=== PATIENT | female | born 1970 ===

== ENCOUNTER 2018-04-30 10:59 | Emergency (ER) | payer OTHER ==
[2018-04-30 10:59] VITALS: BMI 45.5
[2018-04-30 11:49] VITALS: BP 138/85; PULSE 97; RESP 16; TEMP 98.5; O2SAT 96
== END 2018-04-30 11:56 | disposition left against medical advice (07) ==
LOC: ED 10:59
DX: Z02.89 Encounter for other administrative examinations (principal); R73.9 Hyperglycemia, unspecified
CPT/HCPCS: 82948; LWBS0

== ENCOUNTER 2018-05-31 00:48 | Emergency (ER) | payer OTHER ==
[2018-05-31 01:02] VITALS: BMI 45.6
[2018-05-31 01:18] VITALS: TEMP 98.1
[2018-05-31 01:48] LABS: BASO # 0.02 K/mm3 (0.0-2.0); BASO % 0.2 % (0.0-3.0); EOS # 0.2 (0.0-0.7); EOS % 1.4 % (1.5-5.0); GRAN # 8.56 (1.4-6.5); GRAN % 67.4 % (50.0-68.0); HEMOGLOBIN 14.9 g/dL (12.0-16.0); LYMPH # 3.2 (1.2-3.4); MEAN CELL VOLUME 84.5 fl (80.0-105.0); MEAN CORPUSCULAR HEMOGLOBIN 28.5 pg (25.0-35.0); MEAN CORPUSCULAR HGB CONC 33.7 g/dl (31.0-37.0); MEAN PLATELET VOLUME 10.8 fl (7.0-11.0); MONO # 0.8 (0.1-0.6); RBC 5.23 10^6/uL (3.5-6.1); RED CELL DISTRIBUTION WIDTH 13.2 % (11.5-14.5); WHITE BLOOD COUNT 12.7 10^3/ul (4.5-11.0)
--- NOTE | 2018-05-31 01:48 | ED PDOC ---
Arrival/HPI - General Chief Complaint: Chest Pain Time Seen by Provider: 05/31/18 01:13 Historian: Patient - History of Present Illness Narrative History of Present Illness (Text): 05/31/18 01:48 47 year old female, whose past medical history includes diabetes, rheumatoid arthritis, hypertension, and pulmonary embolism, presents to the emergency department with right sided chest pain, for the past week. Patient denies any shortness of breath or radiation of the pain. Patient seeks evaluation because she thinks the pain feels similar to when she had a pulmonary embolism 7 months ago. Patient is not on blood thinners. Patient states the pain comes and goes lasting for about 15 minutes. No exacerbation or alleviation of her pain. Patient denies any pain currently. Patient also denies any fever, chills, headache, dizziness, edema, abdominal pain, nausea, vomiting, diarrhea, back pain, neck pain, urinary/bowel changes, or any other complaint. Time/Duration: 1 week Past Medical History - Provider Review Nursing Documentation Reviewed: Yes - Reproductive Menopause: Yes ([id number] lmp) - Cardiac Hx Cardiac Disorders: Yes Hx Hypertension: Yes - Pulmonary Hx Respiratory Disorders: Yes Hx Pulmonary Embolism: Yes - Neurological Hx Neurological Disorder: No - HEENT Hx HEENT Disorder: No - Renal Hx Renal Disorder: No - Endocrine/Metabolic Hx Endocrine Disorders: Yes Hx Diabetes Mellitus Type 2: Yes - Hematological/Oncological Hx Blood Disorders: No - Integumentary Hx Dermatological Disorder: No - Musculoskeletal/Rheumatological Hx Musculoskeletal Disorders: Yes Hx Rheumatoid Arthritis: Yes - Gastrointestinal Hx Gastrointestinal Disorders: No - Genitourinary/Gynecological Hx Genitourinary Disorders: No - Psychiatric Hx Psychophysiologic Disorder: Yes Hx Substance Use: Yes (heroin) - Surgical History Hx Appendectomy: Yes - Anesthesia Hx Anesthesia: Yes Hx Anesthesia Reactions: No Hx Malignant Hyperthermia: No Family/Social History - Physician Review Nursing Documentation Reviewed: Yes Family/Social History: No Known Family HX Smoking Status: Current Some Days Smoker Hx Alcohol Use: Yes Hx Substance Use: Yes (heroin) Substance used: "Heroine every other day'' Allergies/Home Meds Allergies/Adverse Reactions: Allergies Penicillins Allergy (Verified 05/31/18 01:02) RASH Home Medications: Home Meds Medication Instructions Recorded Confirmed Oxycodone HCl/Acetaminophen 1 tab PO TID 01/13/16 05/31/18 [Percocet 10-325 mg Tablet] metFORMIN [glucOPHAGE] 500 mg PO BID 06/17/17 05/31/18 Atenolol [Tenormin] 12.5 mg PO DAILY 05/31/18 05/31/18 Review of Systems - Physician Review All systems were reviewed & negative as marked: Yes - Review of Systems Constitutional: Normal. absent: Fevers, Night Sweats Eyes: Normal ENT: Normal Respiratory: Normal Cardiovascular: Chest Pain Gastrointestinal: Normal Genitourinary Female: Normal. absent: Urine Output Changes Musculoskeletal: Normal. absent: Back Pain, Neck Pain Skin: Normal Neurological: Normal. absent: Headache, Dizziness Endocrine: Normal Hemo/Lymphatic: Normal Psychiatric: Normal Physical Exam Vital Signs Reviewed: Yes Vital Signs Temp Pulse Pulse Resp BP Pulse Ox 05/31/18 03:41 83 18 118/67 99 05/31/18 03:00 81 20 110/63 97 05/31/18 01:35 91 H 05/31/18 01:14 98.1 F 05/31/18 01:07 99.3 F 93 H 18 147/77 99 Temperature: Afebrile Blood Pressure: Normal Pulse: Regular Respiratory Rate: Normal Appearance: Positive for: Well-Appearing, Non-Toxic, Comfortable Pain Distress: None Mental Status: Positive for: Alert and Oriented X 3 - Systems Exam Head: Present: Atraumatic, Normocephalic Pupils: Present: PERRL Extroacular Muscles: Present: EOMI Conjunctiva: Present: Normal Mouth: Present: Moist Mucous Membranes Neck: Present: Normal Range of Motion Respiratory/Chest: Present: Clear to Auscultation, Good Air Exchange. No: Respiratory Distress, Accessory Muscle Use Cardiovascular: Present: Regular Rate and Rhythm, Normal S1, S2. No: Murmurs Abdomen: No: Tenderness, Distention, Peritoneal Signs Back: Present: Normal Inspection Upper Extremity: Present: Normal Inspection. No: Cyanosis, Edema Lower Extremity: Present: Normal Inspection. No: Edema Neurological: Present: GCS=15, CN II-XII Intact, Speech Normal Skin: Present: Warm, Dry, Normal Color. No: Rashes Psychiatric: Present: Alert, Oriented x 3, Normal Insight, Normal Concentration Medical Decision Making ED Course and Treatment: 05/31/18 01:59 Impression: 47 year old female presents to the emergency department with right- sided chest pain Plan: -- CT Angio chest -- EKG -- Labs -- Reassess and disposition Prior Visits: Notes and results from previous visits were reviewed. Progress Notes: Patient currently denies chest pain, it is intermittent. Labs and CTA chest done , which was negative for PE. Patient with no complaints throughout emergency department course. On re-eval she was sleeping comfortably. Results discussed. Patient stable for discharge home. 05/31/18 03:39 CT Angiography Chest With Intravenous Contrast EXAM DATE/TIME: 05/31/2018 1:13 AM CLINICAL HISTORY: 47 years old, female; Pain; Chest pain; Type not specified; Additional info: Chest pain, HX of pe TECHNIQUE: Axial computed tomographic angiography images of the chest with intravenous contrast using CT angiography protocol. All CT scans at this facility use at least one of these dose optimization techniques: automated exposure control; mA and/or kV adjustment per patient size (includes targeted exams where dose is matched to clinical indication); or iterative reconstruction. MIP reconstructed images were created and reviewed. CONTRAST: 100 ml of visipaque 320 administered intravenously. COMPARISON: No relevant prior studies available. FINDINGS: Pulmonary arteries: No pulmonary embolism. Aorta: Normal. No aortic aneurysm. No aortic dissection. Lungs: Mosaic attenuation pattern which is nonspecific but could be reflective of small airways disease or vascular pathology such as pulmonary hypertension. Pleural space: Normal. No pneumothorax. No pleural effusion. Heart: Normal. No cardiomegaly. No pericardial effusion. Bones/joints: Unremarkable. No acute fracture. Soft tissues: Unremarkable. Lymph nodes: Unremarkable. No enlarged lymph nodes. Liver: Caity liver. IMPRESSION: No pulmonary embolism. - Lab Interpretations Lab Results: 05/31/18 01:19 05/31/18 01:55 Lab Results 05/31/18 01:55: PT 12.5, INR 1.09, APTT 38.9 H 05/31/18 01:55: Sodium 138, Potassium 4.6, Chloride 97 L, Carbon Dioxide 32, Anion Gap 13, BUN 11, Creatinine 0.6 L, Est GFR ( Amer) > 60, Est GFR ( Non-Af Amer) > 60, Random Glucose 205 H, Calcium 9.4, Troponin I < 0.01 05/31/18 01:19: WBC 12.7 H, RBC 5.23, Hgb 14.9, Hct 44.2, MCV 84.5, MCH 28.5, MCHC 33.7, RDW 13.2, Plt Count 233, MPV 10.8, Gran % 67.4, Lymph % (Auto) 25.0, Beaver % (Auto) 6.0, Eos % (Auto) 1.4 L, Baso % (Auto) 0.2, Gran # 8.56 H, Lymph # (Auto) 3.2, Beaver # (Auto) 0.8 H, Eos # (Auto) 0.2, Baso # (Auto) 0.02 - RAD Interpretation Radiology Orders: 05/31/18 01:13 ANGIO CHEST PE PROTOCOL [CT] Stat - Scribe Statement The provider has reviewed the documentation as recorded by the Scribe Giovanny Ford Provider Scribe Attestation: All medical record entries made by the Scribe were at my direction and personally dictated by me. I have reviewed the chart and agree that the record accurately reflects my personal performance of the history, physical exam, medical decision making, and the department course for this patient. I have also personally directed, reviewed, and agree with the discharge instructions and disposition. Disposition/Present on Arrival - Present on Arrival Any Indicators Present on Arrival: Yes History of DVT/PE: Yes History of Uncontrolled Diabetes: Yes Urinary Catheter: No History of Decub. Ulcer: No History Surgical Site Infection Following: None - Disposition Have Diagnosis and Disposition been Completed?: Yes Diagnosis: Chest pain Disposition: HOME/ ROUTINE Disposition Time: 03:55 Condition: GOOD Discharge Instructions (ExitCare): Chest Pain (ED) Additional Instructions: FABRICE SINGH, thank you for letting us take care of you today. Your provider was Edyta Tomlinson MD and you were treated for chest pain. The emergency medical care you received today was directed at your acute symptoms. If you were prescribed any medication, please fill it and take as directed. It may take several days for your symptoms to resolve. Return to the Emergency Department if your symptoms worsen, do not improve, or if you have any other problems. Please contact your doctor or call one of the physicians/clinics you have been referred to that are listed on the Patient Visit Information form that is included in your discharge packet. Bring any paperwork you were given at discharge with you along with any medications you are taking to your follow up visit. Our treatment cannot replace ongoing medical care by a primary care provider outside of the emergency department. Thank you for allowing the [facility] team to be part of your care today. If you had an X-Ray or CT scan: A Radiologist will review the ED reading if any change in treatment is needed we will contact you. If you had a blood, urine, or wound culture: It will take several days for the results, if any change in treatment is needed we will contact you. If you had an STI test: It will take 48 hours for the results. Please call after 1 week if you have not heard back. Referrals: Tracy Moore MD [Primary Care Provider] - Follow up with primary Forms: [employer] (Ukrainian)
[2018-05-31 02:00] LABS: TROPONIN I < 0.01 ng/mL
[2018-05-31 02:14] LABS: INR 1.09; PARTIAL THROMBOPLASTIN TIME 38.9 Seconds (25.1-36.5); PROTHROMBIN TIME 12.5 SECONDS (9.4-12.5)
[2018-05-31 02:20] LABS: BLOOD UREA NITROGEN 11 mg/dL (7-21); CALCIUM 9.4 mg/dL (8.4-10.5)
[2018-05-31 02:33] LABS: GFR NON-AFRICAN AMERICAN > 60
[2018-05-31] MEDS ORDERED: Iodixanol 320 MG/ML 100 ML BOTTLE IV ONE (02:43)
[2018-05-31 03:42] VITALS: BP 118/67; PULSE 83; RESP 18; O2SAT 99
--- NOTE | 2018-05-31 08:25 | CT ---
Date of service: 05/31/2018 PROCEDURE: CT Chest with contrast (Pulmonary Angiogram) HISTORY: chest pain, hx of PE COMPARISON: None available. TECHNIQUE: Axial computed tomography images were obtained of the chest in the pulmonary arterial phase of enhancement. Coronal and sagittal reformatted images were created and reviewed. Intravenous contrast dose: 100 cc of Visipaque Radiation dose: Total exam DLP = 763 mGy-cm. This CT exam was performed using one or more of the following dose reduction techniques: Automated exposure control, adjustment of the mA and/or kV according to patient size, and/or use of iterative reconstruction technique. FINDINGS: PULMONARY ARTERIES: Unremarkable. No pulmonary embolism. AORTA: No acute findings. No thoracic aortic aneurysm. LUNGS: Unremarkable. No nodule, mass or pulmonary consolidation. Minimal ground-glass densities are seen in both lungs. PLEURAL SPACES: Unremarkable. No effusion or pneumothorax. HEART: Unremarkable. No cardiomegaly. No significant pericardial effusion. LYMPH NODES: No lymphadenopathy. BONES, CHEST WALL: Unremarkable. No fracture or destructive lesion OTHER FINDINGS: The report concurs with the preliminary [facility] report IMPRESSION: Unremarkable CT pulmonary angiogram. No pulmonary embolus.
--- NOTE | 2018-05-31 21:36 | CARD ---
APPROVED REPORT Date of service: 05/31/2018 EKG Measurement Heart [id number] <Conclusion> Normal sinus rhythm Possible Left atrial enlargement Borderline ECG
== END 2018-05-31 03:55 | disposition home or self-care (01) ==
LOC: ED 00:48
DX: R07.9 Chest pain, unspecified (principal); E11.9 Type 2 diabetes mellitus without complications; I10 Essential (primary) hypertension; M06.9 Rheumatoid arthritis, unspecified; Z86.711 Personal history of pulmonary embolism
CPT/HCPCS: 71275; 80048; 84484; 85025; 85610; 85730; 93005; 99284; Q9967

== ENCOUNTER 2018-09-09 18:55 | Emergency (ER) | payer MEDICAID, OTHER ==
[2018-09-09 18:55] VITALS: BMI 45.6
[2018-09-09 19:10] VITALS: RESP 18
--- NOTE | 2018-09-09 19:43 | ED PDOC ---
Arrival/HPI - General Chief Complaint: Dizziness/Lightheaded Time Seen by Provider: 09/09/18 19:18 Historian: Patient - History of Present Illness Narrative History of Present Illness (Text): 09/09/18 19:44 A 47 year old female, whose past medical history includes PE, hypertension, and diabetes, presents to the emergency department for a complaint of 2 day duration dizziness. Patient notes that her symptoms do not change with position. She states that she is concerned because of her history of PE and not on anticoagulants. She notes that when she was in the hospital at the time, she was given shots in her abdomen for 1 week. The patient denies syncoope, visual changes, recent travel, fevers, chills, headache, chest pain, shortness of breath, dyspnea on exertion, cough, abdominal pain, nausea, vomiting, diarrhea, back pain, neck pain, urinary/bowel changes, or any other complaint. Time/Duration: Other (2 days) Symptom Onset: Sudden Symptom Course: Unchanged Activities at Onset: Rest, Light Context: Home Past Medical History - Provider Review Nursing Documentation Reviewed: Yes - Infectious Disease Hx of Infectious Diseases: None - Reproductive Menopause: Yes - Cardiac Hx Cardiac Disorders: Yes Hx Hypertension: Yes - Pulmonary Hx Respiratory Disorders: Yes Hx Pulmonary Embolism: Yes - Neurological Hx Neurological Disorder: No - HEENT Hx HEENT Disorder: No - Renal Hx Renal Disorder: No - Endocrine/Metabolic Hx Endocrine Disorders: Yes Hx Diabetes Mellitus Type 2: Yes - Hematological/Oncological Hx Blood Disorders: No - Integumentary Hx Dermatological Disorder: No - Musculoskeletal/Rheumatological Hx Musculoskeletal Disorders: Yes Hx Rheumatoid Arthritis: Yes - Gastrointestinal Hx Gastrointestinal Disorders: No - Genitourinary/Gynecological Hx Genitourinary Disorders: No - Psychiatric Hx Psychophysiologic Disorder: Yes Hx Substance Use: Yes (heroin) - Surgical History Hx Appendectomy: Yes - Anesthesia Hx Anesthesia: Yes Hx Anesthesia Reactions: No Hx Malignant Hyperthermia: No Family/Social History - Physician Review Nursing Documentation Reviewed: Yes Family/Social History: No Known Family HX Smoking Status: Current Some Days Smoker Hx Alcohol Use: Yes Hx Substance Use: Yes (heroin) Substance used: "Heroine every other day'' Allergies/Home Meds Allergies/Adverse Reactions: Allergies Penicillins Allergy (Verified 09/09/18 19:10) RASH Home Medications: Home Meds Medication Instructions Recorded Confirmed RX: Oxycodone HCl/Acetaminophen 1 tab PO TID 01/13/16 09/09/18 [Percocet 10-325 mg Tablet] RX: metFORMIN [glucOPHAGE] 500 mg PO BID 06/17/17 09/09/18 RX: Atenolol [Tenormin] 12.5 mg PO DAILY 05/31/18 09/09/18 Review of Systems - Physician Review All systems were reviewed & negative as marked: Yes - Review of Systems Constitutional: absent: Fevers Respiratory: absent: SOB, Cough Cardiovascular: absent: Chest Pain, MARTINEZ Gastrointestinal: absent: Abdominal Pain, Stool Changes, Diarrhea, Nausea, Vomiting Genitourinary Female: absent: Urine Output Changes Musculoskeletal: absent: Back Pain, Neck Pain Neurological: Dizziness. absent: Headache Physical Exam Vital Signs Reviewed: Yes Vital Signs Temp Pulse Resp BP Pulse Ox 09/09/18 19:03 98.3 F 86 18 135/85 97 Temperature: Afebrile Blood Pressure: Normal Pulse: Regular Respiratory Rate: Normal Appearance: Positive for: Well-Appearing, Non-Toxic, Comfortable Pain Distress: None Mental Status: Positive for: Alert and Oriented X 3 - Systems Exam Head: Present: Atraumatic, Normocephalic Pupils: Present: PERRL Extroacular Muscles: Present: EOMI Conjunctiva: Present: Normal Mouth: Present: Moist Mucous Membranes Neck: Present: Normal Range of Motion Respiratory/Chest: Present: Clear to Auscultation, Good Air Exchange. No: Respiratory Distress, Accessory Muscle Use Cardiovascular: Present: Regular Rate and Rhythm, Normal S1, S2. No: Murmurs Abdomen: No: Tenderness, Distention, Peritoneal Signs Back: Present: Normal Inspection Upper Extremity: Present: Normal Inspection. No: Cyanosis, Edema Lower Extremity: Present: CALF TENDERNESS. No: Edema Neurological: Present: GCS=15, CN II-XII Intact, Speech Normal, Other (No nystagmus) Skin: Present: Warm, Dry, Normal Color. No: Rashes Psychiatric: Present: Alert, Oriented x 3, Normal Insight, Normal Concentration Medical Decision Making ED Course and Treatment: 09/09/18 19:55 Impression: A 47 female presents to the emergency department for a complaint of 2 day duration dizziness. Plan: -- EKG -- Chest X-ray -- Right Lower Extremity Ultrasound -- Labs -- Urinalysis -- Reassess and disposition Prior Visits: Notes and results from previous visits were reviewed. Progress Notes: D-dimer negative. 09/09/18 21:00 EKG shows NSR at 88 BPM with normal intervals, normal axis, no elevation. Interpreted by me 09/09/18 21:33 Right Lower Extremity Ultrasound: Negative 09/09/18 23:30 On reevaluation the patient feels better and is in no acute distress after IV floods. I updated her on her delayed labs. Spoke to systems testing laboratory technician and reports there is a problem with the controls and that the d-dimer will be pending for 30 more minutes. CHEST, 2 VIEWS. Electronically signed on Sep 10, 2018 1:14:54 AM EST by: Jaylene Calderon M.D., IMPRESSION: Bronchitis. 09/10/18 01:41 On reevaluation the patient is in no acute distress. Counseled patient in quitting smoking. I have discussed the results and plan with the patient, who expresses understanding. Patient given the opportunity to ask question, all questions were answered and there is agreement with the plan to discharge the patient home with prescription for Zithromax. Patient is stable for discharge. Patient was instructed to follow up with physician/clinic in 1-2 days or return if symptoms persist/worsen or new concerning symptoms arise. - Scribe Statement The provider has reviewed the documentation as recorded by the Geovanyibe Ginger Clemente Provider Scribe Attestation: All medical record entries made by the Scribe were at my direction and personally dictated by me. I have reviewed the chart and agree that the record accurately reflects my personal performance of the history, physical exam, medical decision making, and the department course for this patient. I have also personally directed, reviewed, and agree with the discharge instructions and disposition. Disposition/Present on Arrival - Present on Arrival Any Indicators Present on Arrival: Yes History of DVT/PE: Yes History of Uncontrolled Diabetes: No Urinary Catheter: No History of Decub. Ulcer: No History Surgical Site Infection Following: None - Disposition Have Diagnosis and Disposition been Completed?: Yes Diagnosis: Bronchitis, Dizziness, Dehydration, Tobacco abuse counseling Disposition: HOME/ ROUTINE Disposition Time: 01:26 Patient Plan: Discharge Condition: IMPROVED Discharge Instructions (ExitCare): Acute Bronchitis, Adult (DC), Quitting Smo pepito, Dizziness, Nonvertigo, (DC) Prescriptions: Azithromycin [Zithromax] 250 mg PO DAILY #4 tab Referrals: Tracy Moore MD [Primary Care Provider] - Follow up with primary Forms: [employer] (Icelandic)
[2018-09-09] MEDS ORDERED: Sodium Chloride 0.9% 1,000 ML IV STA (20:13)
[2018-09-09 20:17] LABS: BASO # 0.02 K/mm3 (0.0-2.0); BASO % 0.1 % (0.0-3.0); EOS # 0.1 (0.0-0.7); EOS % 0.9 % (1.5-5.0); GRAN # 11.31 (1.4-6.5); GRAN % 75.7 % (50.0-68.0); HEMOGLOBIN 13.4 g/dL (12.0-16.0); LYMPH # 2.7 (1.2-3.4); MEAN CELL VOLUME 88.2 fl (80.0-105.0); MEAN CORPUSCULAR HEMOGLOBIN 28.3 pg (25.0-35.0); MEAN CORPUSCULAR HGB CONC 32.1 g/dl (31.0-37.0); MEAN PLATELET VOLUME 10.6 fl (7.0-11.0); MONO # 0.8 (0.1-0.6); MONO % 5.3 % (1.0-6.0); RBC 4.73 10^6/uL (3.5-6.1); RED CELL DISTRIBUTION WIDTH 13.2 % (11.5-14.5)
[2018-09-09 21:08] LABS: ALBUMIN 4.1 g/dL (3.0-4.8); ALT/SGPT 28 U/L (7-56); AST/SGOT 25 U/L (14-36); BLOOD UREA NITROGEN 15 mg/dL (7-21); CALCIUM 9.5 mg/dL (8.4-10.5); GFR NON-AFRICAN AMERICAN 59
[2018-09-09 21:19] LABS: TROPONIN I < 0.01 ng/mL
[2018-09-09 22:10] LABS: URINE BILIRUBIN NEGATIVE (NEGATIVE); URINE BLOOD NEGATIVE (NEGATIVE); URINE GLUCOSE (UA) NEGATIVE (NEGATIVE); URINE LEUKOCYTE ESTERASE TRACE Leu/uL (NEGATIVE); URINE PROTEIN NEGATIVE mg/dL (<30 mg/dL); URINE UROBILINOGEN 0.2 E.U./dL (<1 E.U./dL)
[2018-09-09 22:12] LABS: URINE APPEARANCE CLEAR (CLEAR); URINE COLOR LIGHT YELLOW (YELLOW)
[2018-09-09 23:09] LABS: URINE BACTERIA MOD (NEG)
[2018-09-09 23:40] LABS: PARTIAL THROMBOPLASTIN TIME 35.3 Seconds (25.1-36.5)
[2018-09-10 01:40] VITALS: BP 122/80; PULSE 80; TEMP 98; O2SAT 98
--- NOTE | 2018-09-10 08:53 | RAD ---
HISTORY: dizziness COMPARISON: CTA chest performed 05/31/18 TECHNIQUE: Chest PA and lateral FINDINGS: Examination limited by habitus and hypoinflation. The costophrenic angles are incompletely imaged. LUNGS: Mild bibasilar atelectasis. Please note that chest x-ray has limited sensitivity for the detection of pulmonary masses. PLEURA: No significant pleural effusion identified. No definite pneumothorax . CARDIOVASCULAR: Heart size appears top normal. No atherosclerotic calcification present. OSSEOUS STRUCTURES: Mild degenerative changes. VISUALIZED UPPER ABDOMEN: Unremarkable. OTHER FINDINGS: None. IMPRESSION: Mild bibasilar atelectasis.
--- NOTE | 2018-09-10 14:48 | CARD ---
APPROVED REPORT Date of service: 09/09/2018 EKG Measurement Heart [id number] <Conclusion> Normal sinus rhythm Normal ECG
--- NOTE | 2018-09-10 15:03 | US ---
PROCEDURE: Right lower extremity venous US HISTORY: Leg pain and swelling. Evaluate for DVT. PHYSICIAN(S): Giovanny Stewart M.D. TECHNIQUE: Duplex sonography and color-flow Doppler with graded compression were used to evaluate the deep venous system of the right lower extremity. The exam is limited by body habitus edema. The lower femoral veins and tibial veins are not well seen FINDINGS: The visualized deep venous system of the right lower extremity is sonographically normal and compressible. Normal waveforms and augmentation are seen. There is no sonographic evidence for deep venous thrombosis in the visualized segments of the right lower extremity. IMPRESSION: 1. No sonographic evidence for deep venous thrombosis in the visualized segments of the right lower extremity. 2. Limited study
== END 2018-09-10 02:01 | disposition home or self-care (01) ==
LOC: ED 18:55
DX: E86.0 Dehydration (principal); J40 Bronchitis, not specified as acute or chronic; Z71.6 Tobacco abuse counseling; M06.9 Rheumatoid arthritis, unspecified; E11.9 Type 2 diabetes mellitus without complications; I10 Essential (primary) hypertension
CPT/HCPCS: 71046; 80053; 81001; 82550; 83615; 83735; 84484; 85025; 85378; 85730; 93005; 93971; 99285; J7030